=== PATIENT | male | born 1930 | race Hispanic/Latino ===

== ENCOUNTER 2018-04-11 15:38 | Outpatient (CLI) | payer MEDICARE ==
--- NOTE | 2018-04-11 16:55 | XRay Report ---
PA and lateral chest: Cough, congestion. Routine views demonstrates a tortuous aorta with normal size heart. No vascular congestion. Diminished vascular markings bilaterally. Elevated left hemidiaphragm. Dense calcification in the left lung just above the diaphragm. Calcifications noted in the left hilum. Bilateral humerus hip prostheses.The exam is unchanged compared to prior exam in March 2013. Impression: Chronic pulmonary and vascular changes. 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 No acute finding identified.
== END 2018-04-11 15:39 | disposition home or self-care (01) ==
LOC: SPVIMAG 15:38
PROVIDERS: ATTEND Internal Medicine
DX: R05 Cough (principal); R09.89 Other specified symptoms and signs involving the circulatory and respiratory systems; E11.9 Type 2 diabetes mellitus without complications; I10 Essential (primary) hypertension; Z87.891 Personal history of nicotine dependence
CPT/HCPCS: 71046

== ENCOUNTER 2019-04-11 12:51 | Outpatient (CLI) | payer MEDICARE ==
--- NOTE | 2019-04-11 16:33 | XRay Report ---
PA AND LATERAL CXR HISTORY: Cough. COMPARISON: None FINDINGS: Cardiomediastinal silhouette: Normal cardiac size. Normal mediastinal contours. Lungs: Chronic elevation of the left hemidiaphragm. Large calcified left hilar and left lower lobe gr anulomata. The largest in the left lower lobe measures approximately 2 cm. Normal lung aeration. No pleural effusions. No pneumothorax. Pulmonary vascularity: Normal. Support hardware: None. Additional findings: None. IMPRESSION: 1. No acute cardiopulmonary process. 2. Old granulomatous disease. Signer Name: Jim Nieves MD Signed: 04/11/2019 4:29 PM Workstation Name: [id number]
== END 2019-04-11 12:52 | disposition home or self-care (01) ==
LOC: SPVIMAG 12:51
PROVIDERS: ATTEND Internal Medicine
DX: L92.9 Granulomatous disorder of the skin and subcutaneous tissue, unspecified (principal); I10 Essential (primary) hypertension; E11.9 Type 2 diabetes mellitus without complications
CPT/HCPCS: 71046